=== PATIENT | female | born 1980 | race American Indian/Alaskan Native ===

== ENCOUNTER 2016-06-26 22:20 | Emergency (ER) | payer BC ==
[2016-06-26 22:27] VITALS: BP 134/75
[2016-06-26 23:03] LABS: Basophils % (Auto) 0.4 % (0.0-1.8); Eosinophils % (Auto) 1.5 % (0.0-4.3); Hematocrit 36.2 % (30.3-42.9); Hemoglobin 11.6 gm/dl (10.1-14.3); Mean Corpuscular HGB Conc 32 % (30-34); Mean Corpuscular Hemoglobin 28 pg (28-32); Mean Corpuscular Volume 88 fl (79-97); Platelet Count 343 K/mm3 (140-440); Red Cell Distribution Width 12.8 % (13.2-15.2); White Blood Count 9.1 K/mm3 (4.5-11.0)
[2016-06-26 23:19] LABS: Alanine Aminotransferase 11 units/L (7-56); Albumin 3.7 g/dL (3.9-5); Albumin/Globulin Ratio 0.9 %; Alkaline Phosphatase 39 units/L (35-129); Bilirubin,Total 0.3 mg/dL (0.1-1.2); Blood Urea Nitrogen 9 mg/dL (7-17); Calcium 8.7 mg/dL (8.4-10.2); Carbon Dioxide 26 mmol/L (22-30); Chloride 98.1 mmol/L (98-107); Glucose 98 mg/dL (65-100); Lipase 34 units/L (13-60); Sodium 138 mmol/L (137-145); Total Protein 7.6 g/dL (6.3-8.2)
[2016-06-26 23:23] LABS: Anion Gap 18 mmol/L
== END 2016-06-26 23:00 | disposition left against medical advice (07) ==
LOC: ED 22:20
DX: N89.8 Other specified noninflammatory disorders of vagina (principal); R10.30 Lower abdominal pain, unspecified; R30.0 Dysuria; Z53.21 Procedure and treatment not carried out due to patient leaving prior to being seen by health care provider
CPT/HCPCS: 36415; 80053; 83690; 85025

== ENCOUNTER 2016-07-17 09:29 | Emergency (ER) | payer BC ==
[2016-07-17 09:39] VITALS: BP 110/73
--- NOTE | 2016-07-17 09:59 | Emergency Department Report ---
HPI - General Chief Complaint: Upper Respiratory Infection Time Seen by Provider: 07/17/16 09:50 - HPI HPI: Patient here reports that she's having cough, nasal congestion and fever on and off with facial pressure 1 week. She says she took NyQuil with minimal relief. She denies any shortness of breath or chest pain. She denies any pain. She is also requesting treatment for bacterial [place] vaginosis because she reports she has discharge and she has chronic bacterial vaginosis. Denies any urinary burning frequency or urgency. Denies any vaginal bleeding. Denies any nausea vomiting. Denies any abdominal or back pain. Last menstrual period was 07/10/2016. Patient is sexually active and she reports one partner says she' s been with for a long time. ED Past Medical Hx - Past Medical History Previous Medical History?: No - Surgical History Past Surgical History?: Yes Additional Surgical History: - Family History Family history: no significant - Social History Smoking Status: Never Smoker Substance Use Type: Alcohol - Medications Home Medications: Home Medications Medication Instructions Recorded Confirmed Last Taken Type Azithromycin [Zithromax Z-ABELINO] 250 mg PO DAILY #6 tab 07/17/16 Unknown Rx Fluticasone [Flonase] 1 spray NS QDAY #1 bottle 07/17/16 Unknown Rx Loratadine [Claritin] 10 mg PO DAILY #10 tablet 07/17/16 Unknown Rx guaiFENesin/CODEINE [Robitussin AC] 5 ml PO BID PRN #70 ml 07/17/16 Unknown Rx ED Review of Systems ROS: Stated complaint: COUGH/CHEST CONGESTED/HEADACHE Other details as noted in HPI Comment: All other systems reviewed and negative Constitutional: fever ENT: congestion. denies: ear pain, throat pain Respiratory: cough. denies: shortness of breath, SOB with exertion, SOB at rest , stridor, wheezing Cardiovascular: denies: chest pain, palpitations, edema, syncope Gastrointestinal: denies: abdominal pain, nausea, vomiting, diarrhea, constipation Genitourinary: discharge. denies: urgency, dysuria, frequency, hematuria, abnormal menses, dyspareunia Skin: denies: rash Neurological: denies: headache, numbness, paresthesias, confusion, abnormal gait , vertigo Physical Exam - Physical Exam Vital Signs: Vital Signs 07/17/16 09:37 Temperature 99.1 F Pulse Rate 95 H Respiratory 16 Rate Blood Pressure 110/73 O2 Sat by Pulse 100 Oximetry General: Assessment Physical Exam: Head: Normocephalic atraumatic Mouth: Moist, no pharyngeal exudate or erythema. Uvula is midline and oral airway is patent. No gingival enlargement or dental tenderness. No facial swelling. No peritonsillar abscesses. Neck: Supple, no C-spine tenderness, no tracheal deviation. Nontender to palpate. no adenopathy Ears: Bilateral TMs congested without erythema .bilateral EAC without any redness swelling or drainage Eyes: Bilateral pupils equal and reactive to light, bilateral EOM intact. Bilateral sclera and conjunctiva without injection. Normal accommodation Nose: Mucosa moist, positive congestion and erythema. Positive clear drainage. maxillary and frontal sinus tender to palpate. Lungs: clear to auscultate bilaterally no rhonchi wheezes or rales. Normal work of breathing extremity; No CCE. +2 pulses. No neurovascular compromise Abdomen: Tender to palpate in all quadrants. No guarding or rebound tenderness. No CVA tenderness. Female : Patient with yellow vaginal discharge and external vagina. Positive odor. No rash or lesion noted. Pelvic exam with pink cervix. Bleeding noted. Vaginal liu rugated. Noted is yellow whitish discharge on cervix. No cervical motion tenderness. No adnexal tenderness. Cardiovascular: S1-S2, regular rate rhythm. No murmurs. Skin: clean Dry and intact no rash no lesions Psych: Normal mood and behavior ED Course Vital Signs 07/17/16 09:37 Temperature 99.1 F Pulse Rate 95 H Respiratory 16 Rate Blood Pressure 110/73 O2 Sat by Pulse 100 Oximetry - Reevaluation(s) Reevaluation #1: 07/17/16 11:35 Patient given Rocephin 250 mg IM, Zithromax 1 g by mouth and Decadron 60 mg by mouth. Patient wanted to be treated empirically for gonorrhea and chlamydia. ED Medical Decision Making - Lab Data Wet prep revealed less than 20% clues cells, no trichomoniasis or yeast. Gonorrhea and chlamydia tests are pending. - Medical Decision Making ED course: Patient given Rocephin 250 mg IM, Zithromax 1 g by mouth and Decadron 60 mg by mouth. Patient wanted to be treated empirically for gonorrhea and chlamydia. I explained to patient that her wet prep was negative for trichomonas and yeast and she had less than 20% clues cells on test therefore she does not need to be treated for BV. Discussed with her that she had yellow discharge that was mild distress and gave the option to wait for gonorrhea and chlamydia tests will be treated empirically and she chose to be treated empirically in emergency room. Instructed patient that she needs to tell her partner that she was treated for gonorrhea and Chlamydia and pelvic clean emergency room . Instructed her to encourage him to go to [facility] department for STD testing. I also instructed patient based on my physical findings she has sinus infection and will be treated with antibiotic, Flonase and Claritin. Patient voiced understanding of discharge instruction, diagnosis and treatment plan. Discharged home with prescription for Flonase, Guaifenessin with codeine, Zithromax and Claritin. Critical care attestation.: If time is entered above; I have spent that time in minutes in the direct care of this critically ill patient, excluding procedure time. ED Disposition Clinical Impression: Vaginal discharge, Concern about STD in female without diagnosis, Cough Acute sinusitis Qualifiers: Sinusitis location: unspecified location Recurrence: not specified as recurrent Qualified Code(s): J01.90 - Acute sinusitis, unspecified Disposition: DISCHARGED TO HOME OR SELFCARE Is pt being admited?: No Does the pt Need Aspirin: No Condition: Stable Instructions: Sinusitis (ED), Acute Cough (ED), Sexually Transmitted Diseases ( ED), Safe Sex (ED) Additional Instructions: Patient informed partner that you were treated for gonorrhea and Chlamydia in emergency room and he will need to go to help department to get tested. practice safe sex Cough medicine will cause drowsiness. Do not operate any heavy machinery or drive while taking medication. Please take medication as prescribed. Prescriptions: Azithromycin [Zithromax Z-ABELINO] 250 mg PO DAILY #6 tab Fluticasone [Flonase] 1 spray NS QDAY #1 bottle guaiFENesin/CODEINE [Robitussin AC] 5 ml PO BID PRN #70 ml PRN Reason: Cough Loratadine [Claritin] 10 mg PO DAILY #10 tablet Referrals: PRIMARY CARE, [Primary Care Provider] - 3-5 Days Forms: Work/School Release Form(ED)
[2016-07-17] MEDS ORDERED: ROCEPHIN IM ONE (11:30)
[2016-07-17] MEDS ORDERED: ZITHROMAX PO ONE (11:30)
[2016-07-17] MEDS ORDERED: XYLOCAINE 1% MPF 5 mL INFILTRATI ONE (11:30)
[2016-07-17] MEDS ORDERED: DELTASONE PO ONE (11:32)
== END 2016-07-17 12:32 | disposition home or self-care (01) ==
LOC: ED 09:29
DX: J01.90 Acute sinusitis, unspecified (principal); N89.8 Other specified noninflammatory disorders of vagina
CPT/HCPCS: 87210; 87591; 96372; 99283; J0696; J7512

== ENCOUNTER 2017-12-14 16:24 | Emergency (ER) | payer SELFPAY ==
[2017-12-14 16:34] VITALS: BP 138/80
[2017-12-14] MEDS ORDERED: TRIMOX PO ONE (17:35)
[2017-12-14] MEDS ORDERED: TORADOL IM ONE (17:36)
[2017-12-14] MEDS ORDERED: LIDOCAINE VISCOUS 2% PO ONE (17:36)
--- NOTE | 2017-12-14 17:39 | Emergency Department Report ---
ED ENT HPI - General Chief complaint: Dental/Oral Stated complaint: ABSCESS Time Seen by Provider: 12/14/17 17:26 Source: patient Mode of arrival: Ambulatory Limitations: No Limitations - History of Present Illness Initial comments: 37-year-old female past medical history dental cavities presents with complaint of multiple dental cavities and small dental abscess on left. Denies pus or blood drainage from mouth. Speaking in full sentences. MD complaint: tooth pain Onset/Timin -: days(s) Location: tooth # Severity: moderate Severity scale (0 -10): 7 Quality: aching Improves with: none Context- Dental: history of dental caries, poor dental care Associated Symptoms: gum swelling, toothache - Related Data Previous Rx's Medication Instructions Recorded Last Taken Type Azithromycin [Zithromax Z-ABELINO] 250 mg PO DAILY #6 tab 07/17/16 Unknown Rx Fluticasone [Flonase] 1 spray NS QDAY #1 bottle 07/17/16 Unknown Rx Loratadine [Claritin] 10 mg PO DAILY #10 tablet 07/17/16 Unknown Rx guaiFENesin/CODEINE [Robitussin AC] 5 ml PO BID PRN #70 ml 07/17/16 Unknown Rx Acetaminophen/Codeine [Tylenol 1 tab PO Q6H PRN #14 tab 12/14/17 Unknown Rx /Codeine # 3 tab] Amoxicillin [Trimox CAP] 500 mg PO Q8H #30 capsule 12/14/17 Unknown Rx Benzocaine [Oral Pain Reliever] 1 applicatio MM BID #1 paste..g. 12/14/17 Unknown Rx Chlorhexidine Mouthwash [Peridex] 15 ml MM BID #1 bottle 12/14/17 Unknown Rx Ibuprofen [Motrin] 800 mg PO Q8HR PRN #30 tablet 12/14/17 Unknown Rx Allergies Allergy/AdvReac Type Severity Reaction Status Date / Time No Known Allergies Allergy Unverified 06/26/16 22:24 ED Dental HPI - General Chief complaint: Dental/Oral Stated complaint: ABSCESS Time Seen by Provider: 12/14/17 17:26 Source: patient Mode of arrival: Ambulatory Limitations: No Limitations - Related Data Previous Rx's Medication Instructions Recorded Last Taken Type Azithromycin [Zithromax Z-ABELINO] 250 mg PO DAILY #6 tab 07/17/16 Unknown Rx Fluticasone [Flonase] 1 spray NS QDAY #1 bottle 07/17/16 Unknown Rx Loratadine [Claritin] 10 mg PO DAILY #10 tablet 07/17/16 Unknown Rx guaiFENesin/CODEINE [Robitussin AC] 5 ml PO BID PRN #70 ml 07/17/16 Unknown Rx Acetaminophen/Codeine [Tylenol 1 tab PO Q6H PRN #14 tab 12/14/17 Unknown Rx /Codeine # 3 tab] Amoxicillin [Trimox CAP] 500 mg PO Q8H #30 capsule 12/14/17 Unknown Rx Benzocaine [Oral Pain Reliever] 1 applicatio MM BID #1 paste..g. 12/14/17 Unknown Rx Chlorhexidine Mouthwash [Peridex] 15 ml MM BID #1 bottle 12/14/17 Unknown Rx Ibuprofen [Motrin] 800 mg PO Q8HR PRN #30 tablet 12/14/17 Unknown Rx Allergies Allergy/AdvReac Type Severity Reaction Status Date / Time No Known Allergies Allergy Unverified 06/26/16 22:24 ED Review of Systems ROS: Stated complaint: ABSCESS Other details as noted in HPI Constitutional: denies: chills, fever Eyes: denies: eye pain, eye discharge, vision change ENT: dental pain. denies: ear pain, throat pain Respiratory: denies: cough, shortness of breath, wheezing Cardiovascular: denies: chest pain, palpitations Endocrine: no symptoms reported Gastrointestinal: denies: abdominal pain, nausea, diarrhea Genitourinary: denies: urgency, dysuria, discharge Musculoskeletal: denies: back pain, joint swelling, arthralgia Skin: denies: rash, lesions Neurological: denies: headache, weakness, paresthesias Psychiatric: denies: anxiety, depression Hematological/Lymphatic: denies: easy bleeding, easy bruising ED Past Medical Hx - Past Medical History Previous Medical History?: No - Surgical History Past Surgical History?: Yes Additional Surgical History: - Social History Smoking Status: Never Smoker Substance Use Type: Alcohol - Medications Home Medications: Home Medications Medication Instructions Recorded Confirmed Last Taken Type Azithromycin [Zithromax Z-ABELINO] 250 mg PO DAILY #6 tab 07/17/16 Unknown Rx Fluticasone [Flonase] 1 spray NS QDAY #1 bottle 07/17/16 Unknown Rx Loratadine [Claritin] 10 mg PO DAILY #10 tablet 07/17/16 Unknown Rx guaiFENesin/CODEINE [Robitussin AC] 5 ml PO BID PRN #70 ml 07/17/16 Unknown Rx Acetaminophen/Codeine [Tylenol 1 tab PO Q6H PRN #14 tab 12/14/17 Unknown Rx /Codeine # 3 tab] Amoxicillin [Trimox CAP] 500 mg PO Q8H #30 capsule 12/14/17 Unknown Rx Benzocaine [Oral Pain Reliever] 1 applicatio MM BID #1 paste..g. 12/14/17 Unknown Rx Chlorhexidine Mouthwash [Peridex] 15 ml MM BID #1 bottle 12/14/17 Unknown Rx Ibuprofen [Motrin] 800 mg PO Q8HR PRN #30 tablet 12/14/17 Unknown Rx ED Physical Exam - General Limitations: No Limitations General appearance: alert, in no apparent distress - Head Head exam: Present: atraumatic, normocephalic - Eye Eye exam: Present: normal appearance, PERRL, EOMI - ENT ENT exam: Present: mucous membranes moist - Expanded ENT Exam Expanded Teeth exam: Present: dental caries, dental tenderness #, gingival enlargement 1 - Dental Tenderness (multiple dental cavities) 2 - Dental Tenderness (multiple dental cavities) - Neck Neck exam: Present: normal inspection - Respiratory Respiratory exam: Present: normal lung sounds bilaterally. Absent: respiratory distress - Cardiovascular Cardiovascular Exam: Present: regular rate, normal rhythm. Absent: systolic murmur, diastolic murmur, rubs, gallop - GI/Abdominal GI/Abdominal exam: Present: soft, normal bowel sounds - Extremities Exam Extremities exam: Present: normal inspection - Back Exam Back exam: Present: normal inspection - Neurological Exam Neurological exam: Present: alert, oriented X3 - Psychiatric Psychiatric exam: Present: normal affect, normal mood - Skin Skin exam: Present: warm, dry, intact, normal color. Absent: rash ED Course Vital Signs 12/14/17 12/14/17 16:29 17:47 Temperature 99.8 F H Pulse Rate 81 Respiratory 20 20 Rate Blood Pressure 138/80 O2 Sat by Pulse 98 Oximetry ED Medical Decision Making - Medical Decision Making A/P: dental cavities, toothache, dental abscess 1- Motrin when necessary, amoxicillin ten-day course, Orajel when necessary, Peridex mouthwash daily basis, short course codeine when necessary 2- I provided patient with information for multiple dental clinics to follow up and stressed the importance of dental follow-up as he has multiple cavities that require dental fixation or instrumentation 3- no clinical signs of facial abscess, no Jonh's angina, no induration or cellulitis of floor of mouth or tongue 4- patient able to tolerate by mouth before discharge 5- no signs of facial infection. Advised patient that if she does not take antibiotics with follow-up with a dentist as soon as possible that a can result in potentially serious or dangerous infection to develop in jaw or face. Patient states that he understood these instructions. I advised patient to return to the ED for any persistent unrelenting nausea or vomiting fever or chills or headaches. Critical care attestation.: If time is entered above; I have spent that time in minutes in the direct care of this critically ill patient, excluding procedure time. ED Disposition Clinical Impression: Dental caries, Toothache Disposition: TO HOME OR SELFCARE Is pt being admited?: No Does the pt Need Aspirin: No Condition: Stable Instructions: Dental Abscess (ED), Dental Caries (ED), Toothache (ED) Prescriptions: Acetaminophen/Codeine [Tylenol /Codeine # 3 tab] 1 tab PO Q6H PRN #14 tab PRN Reason: Pain , Severe (7-10) Amoxicillin [Trimox CAP] 500 mg PO Q8H #30 capsule Benzocaine [Oral Pain Reliever] 1 applicatio MM BID #1 paste..g. Chlorhexidine Mouthwash [Peridex] 15 ml MM BID #1 bottle Ibuprofen [Motrin] 800 mg PO Q8HR PRN #30 tablet PRN Reason: Pain , Severe (7-10) Referrals: [facility] [Outside] - 3-5 Days Forms: Work/School Release Form(ED) Time of Disposition: 17:38
== END 2017-12-14 18:03 | disposition home or self-care (01) ==
LOC: ED 16:24
DX: K02.9 Dental caries, unspecified (principal); K04.7 Periapical abscess without sinus; K06.8 Other specified disorders of gingiva and edentulous alveolar ridge
CPT/HCPCS: 96372; 99282; J1885